=== PATIENT | female | born 2000 | race Caucasian/White ===

== ENCOUNTER 2019-04-13 22:35 | Emergency (ER) | payer OTHER, BC ==
[2019-04-14 02:53] LABS: MAGNESIUM 1.8 mg/dl (1.7-2.5)
[2019-04-14 02:54] LABS: ANION GAP 12 (5-13); BLOOD UREA NITROGEN 8 mg/dl (7-20); CALCIUM 6.8 mg/dl (8.4-10.2); CARBON DIOXIDE 28 mmol/L (21-31); CHLORIDE 103 mmol/L (97-110); CREATININE 0.59 mg/dl (0.44-1.00); Estimated GFR > 60 mL/min (>60); GLUCOSE 102 mg/dl (70-220); POTASSIUM 4.3 mmol/L (3.5-5.1); SODIUM 143 mmol/L (135-144)
[2019-04-14] MEDS: CA CHLORIDE 10% 10 ML SYRINGE IV (04:28)
== END 2019-04-14 05:08 | disposition home or self-care (01) ==
LOC: FTE 22:35 → E/R 04-14 05:08
DX: E83.51 Hypocalcemia (principal)
CPT/HCPCS: 36415; 80048; 81025; 83735; 93005; 96374; 99284-25